=== PATIENT | male | born 1945 | race Caucasian/White ===

== ENCOUNTER 2017-04-11 13:08 | Day surgery (SDC) | payer BC ==
[2017-04-11 14:50] VITALS: BP 176/97; PULSE 57; RESP 20; TEMP 98.5; O2SAT 97
[2017-04-11] MEDS ORDERED: LIDOCAINE HCL 1% 20 ML VIAL ONE (14:56)
[2017-04-11 15:20] VITALS: BP 162/82; PULSE 56; RESP 20; O2SAT 96
--- NOTE | 2017-04-11 15:40 | RADRPT ---
EXAM DATE/TIME: 04/11/2017 13:50 [place] COMPARISON: No previous studies available for comparison. EXTERNAL COMPARISON: [facility], PET/CT TUMOR METABOLISM, Apr 06 2017. INDICATIONS : Right neck enlarged lymph node. MEDICAL HISTORY : Mantel cell cancer; lymphoma. Hypertension. Hypercholesterol. SURGICAL HISTORY : Hernia. ENCOUNTER: Initial ACUITY: 1 week PAIN SCORE: 1/10 LOCATION: Right neck. ORGAN: Bilateral lymph node SPECIMENS: Five core specimen(s) submitted for pathologic evaluation. DEVICE: 18 gauge Temno needle Post procedure scanning reveals no hematoma or other complication. The possibility does exist that the tissue obtained will be non-diagnostic. If the sample is non-page gnostic a repeat biopsy or surgical biopsy may need to be performed. TECHNIQUE: 1. Ultrasound guidance for needle biopsy. 2. Needle biopsy. The risks, benefits and alternatives to the procedure were explained and verbal and written consent w as obtained. The site was prepped in sterile fashion. Full sterile technique was used, including ca p, mask, sterile gloves and gown and a large sterile sheet. Hand hygiene and 2% chlorhexidine and/or betadine/alcohol prep was utilized per protocol for cutaneous antisepsis. The skin and subcutaneous tissues were infiltrated with local anesthetic solution. Sterile gel and sterile probe cover were u tilized for ultrasound guidance. With the patient on the ultrasound table, images were obtained. A needle was advanced into the identified target and the number of specimens as above obtained and jin bmitted for pathologic evaluation. The patient tolerated the procedure well and left the ultrasound suite in stable condition. CONCLUSION: Uncomplicated ultrasound guided needle biopsy. Hema Cheung MD on April 11, 2017 at 15:38 Board Certified Radiologist. This report was verified electronically.
== END 2017-04-11 15:25 | disposition home or self-care (01) ==
LOC: HRAD 13:08 → HRIP 13:09 → HRAD 15:25
PROVIDERS: ATTEND Internal Medicine Hematology
DX: R59.9 Enlarged lymph nodes, unspecified (principal); B95.62 Methicillin resistant Staphylococcus aureus infection as the cause of diseases classified elsewhere; Z16.11 Resistance to penicillins
CPT/HCPCS: 38505; 76942; 86403; 87070; 87147; 87176; 87186; 87205; 88184; 88185; 88305; 88377